=== PATIENT | male | born 1960 | race Caucasian/White ===

== ENCOUNTER 2020-05-11 18:01 | Emergency (ER) | payer OTHER, SELFPAY ==
--- NOTE | ~2020-05-11 | CT_ITS ---
EXAMINATION: CT cervical spine wo con DATE: 05/11/2020 19:12 INDICATION: Fall with head injury and neck pain TECHNIQUE: Computed tomography (CT) of the cervical spine was performed without intravenous contrast. Automated exposure control and iterative reconstruction technique were employed. The dose-length pro duct was 477.22 mGy-cm. COMPARISON: Cervical spine radiographs dated 07/28/2008 FINDINGS: Change mild cervical dextrocurvature. Sagittal alignment is normal. Vertebral body heights are normal . No fracture. Mild disc height loss at C6-C7. Moderate facet osteoarthritis on the right at C3-C4 an d C7-T1 and on the left at C2-C3 and C3-C4. Additional multilevel mild facet and uncovertebral osteoa rthritis throughout the cervical spine. No significant central canal or neural foraminal stenosis. Ce rvical soft tissues are unremarkable. Cluster when apices of lungs are clear. IMPRESSION: 1. Mild cervical spondylosis. No acute osseous abnormality. Reviewed, dictated and finalized at location A. [employer]
--- NOTE | ~2020-05-11 | CT_ITS ---
EXAMINATION: CT brain wo con, CT facial bones wo con DATE: 05/11/2020 19:11 INDICATION: Head injury post fall with neck pain TECHNIQUE: 1. Computed tomography (CT) of the head was performed without intravenous contrast. Sagittal and lucina nal reconstructions were performed. The mA was adjusted according to patient size. Iterative reconstr uction technique was employed. The dose-length product was 605.33 mGy-cm. 2. CT of the maxillofacial bones was performed without intravenous contrast. Sagittal and coronal rec onstructions were performed. Automated exposure control and iterative reconstruction technique were e mployed. The dose-length product was 322.72 mGy-cm. COMPARISON: None FINDINGS: Head: Anterior right frontal scalp hematoma with deep skin laceration. No calvarial fracture. No acute intr acranial hemorrhage, acute infarction or abnormal extra axial fluid collection. Ventricles are normal and symmetric. No mass/mass effect. Maxillofacial bones: No maxillofacial fractures. Orbits are normal. Mucous retention cyst in the right maxillary sinus. Bi lateral mastoid air cells and middle ear cavities are clear. Large dental caries with periapical luce ncy at the anteriormost left maxillary molar. IMPRESSION: 1. No calvarial or maxillofacial fractures. 2. Normal aging brain. Reviewed, dictated and finalized at location A. MANAGER IMPRESSION: 1. No calvarial or maxillofacial fractures. 2. Normal aging brain.
[2020-05-11 18:17] VITALS: BP 168/113; PULSE 72; RESP 12; TEMP 36.4; O2SAT 94
--- NOTE | 2020-05-11 18:41 | ED.FALL ---
HPI - Fall General Chief Complaint: Fall Stated Complaint: ground level fall, head injury, positive LOC Time Seen by Provider: 05/11/20 18:25 Source: patient Mode of arrival: ambulatory Limitations: no limitations History of Present Illness HPI Narrative: 60-year-old male presents to the emergency department tonight after a slip and fall. Patient states he was heading home from work when he slipped on the ice at his home. Patient notes that he fell striking his head on a concrete step. Patient initially was dazed but was able to make it into the home. There his states that he went unresponsive for just a few moments. He was still breathing but it was unclear if he had lost consciousness or not. Patient was feeling quite poor but notes that since he has been here he is feeling better and has noted increased mental clarity. Related Data Allergies Allergy/AdvReac Type Severity Reaction Status Date / Time atorvastatin Allergy Unknown Unknown Verified 05/11/20 18:24 escitalopram Allergy Unknown Not right Verified 05/11/20 18:24 prednisone Allergy Unknown agitation/ Verified 05/11/20 18:24 irritability/ insomnia/ fluctuating blood sugars. rosuvastatin Allergy Unknown myalgias, Verified 05/11/20 18:24 calf cramping No Known Allergies Allergy Unverified 02/05/17 08:07 Review of Systems Review of Systems: Narrative: CONSTITUTIONAL: Denies fever, chills, or sweats. EYES: Denies visual changes, redness, or discharge. ENT: Denies rhinorrhea, congestion, sore throat, or otalgia. CARDIOVASCULAR: Denies chest pain, palpitations, or edema. RESPIRATORY: Denies cough or dyspnea. GASTROINTESTINAL: Denies abdominal pain, nausea, vomiting, or diarrhea. GENITOURINARY: Denies dysuria or hematuria. SKIN: Denies rash or itching. MUSCULOSKELETAL: Denies back pain, joint pain, or myalgia. NEUROLOGIC: Denies headache, numbness, dizziness, or weakness. PSYCHIATRIC: Denies anxiety or depression. [facility] Family History Family History Other Carcinoma of colon Diabetes mellitus Family history of Parkinson's disease Malignant neoplasm of prostate Social History Social History Smoking status: Never smoker Alcohol intake: current Exam Narrative: Exam Narrative: GENERAL: Well-appearing, well-nourished, and in no acute distress. HEAD: Stellate laceration noted on the right forehead, approximately 3 cm in length. EYES: PERRLA and EOMI. ENT: Nares clear, no rhinorrhea or epistaxis. Mucous membranes moist. Abrasion noted on the bridge of the nose NECK: Supple. No adenopathy or masses. No carotid bruits or JVD CHEST: Clear to auscultation. No respiratory distress. No wheezes rales or rhonchi HEART: Regular rate and rhythm. No murmur heard. Normal peripheral pulses. ABDOMEN: Soft, nontender, nondistended, normal active bowel sounds. EXTREMITIES: Normal range of motion. No edema. Abrasion noted on the lateral right knee SKIN: Warm, dry, no rash. NEURO: No focal deficits. Alert and oriented x3. PSYCH: Normal mood and affect. Course Reevaluation(s) Reevaluation #1: Patient resting comfortably at this time. Informed him of his negative CT findings. We will go ahead and repair the laceration with suture. Patient is clear thinking, denies any dizziness, fuzziness in his head or changes in his vision. Low suspicion for concussion at this time. Time: 20:37 Vital Signs Vital signs: Vital Signs Temperature 36.4 C L 05/11/20 18:17 Pulse Rate 72 05/11/20 18:17 Respiratory Rate 12 05/11/20 18:17 Blood Pressure 168/113 H 05/11/20 18:17 Pulse Oximetry 94 05/11/20 18:17 Temperature 36.4 C L 05/11/20 18:17 Pulse Rate 72 05/11/20 18:17 Respiratory Rate 12 05/11/20 18:17 Blood Pressure 168/113 H 05/11/20 18:17 Pulse Oximetry 94 05/11/20 18:17 Procedures Laceration Lace
[2020-05-11] MEDS: TETANUS,DIPHTHERIA,AC PERTUSSIS ADULT (0.5 ML) BOOSTRIX IM (18:51)
[2020-05-11] MEDS: HYDROcodone/acetaminophen (*CRX) 5-325 MG TABLET 1 TAB PO (18:52)
[2020-05-11 20:51] VITALS: BP 134/86; PULSE 68; RESP 16; TEMP 36.4; O2SAT 98
== END 2020-05-11 20:52 | disposition home or self-care (01) ==
PROVIDERS: Emergency Provider Emergency Medicine; PCP Internal Medicine
DX: S01.81XA Laceration without foreign body of other part of head, initial encounter (principal); S80.211A Abrasion, right knee, initial encounter; M47.812 Spondylosis without myelopathy or radiculopathy, cervical region; W00.0XXA Fall on same level due to ice and snow, initial encounter; Z23 Encounter for immunization
CPT/HCPCS: 12013; 70450; 70486; 72125; 90471; 90715; 99284; A9270

== ENCOUNTER 2024-11-11 10:24 | Outpatient (CLI) | payer MEDICARE, SELFPAY ==
--- NOTE | ~2024-11-11 | MR_ITS ---
MRI of the abdomen: Clinical indication: Left renal mass. Technique: Coronal SSFSE ARC, WATER:coronal LAVA-FLEX, Coronal 2D FIESTA FatSat, Axial SSFSE BH ARC, Axial 3D DualEcho BH, Axial SSFSE-IR, Axial DWI b=500, Axial 2D FIESTA FatSat, pre and dynamic postco ntrast Axial LAVA ARC, postcontrast Coronal In and Opposed phase LAVA FLEX. Following intravenous adm inistration of 20 cc MultiHance gadolinium, T1-weighted fat-sat imaging was performed in the axial an d coronal planes. Findings: Gallbladder absent. The common bile duct is normal in course and caliber. No filling defect s are seen within the CBD. No evidence of intrahepatic biliary ductal dilatation. The pancreatic duct is normal in size. There is a 2.8 cm heterogeneously enhancing, partially exophytic mass at the medial aspect of the lef t kidney (series 13 image 223). Liver, spleen, pancreas, adrenals, and right kidney appear normal. The aorta and the paraaortic regio ns appear normal. Impression: 2.8 cm heterogeneously enhancing left renal mass is most compatible with renal cell carcinoma, as det sarthak above. surgical consultation recommended. Reviewed, dictated and finalized at location M. Impression: 2.8 cm heterogeneously enhancing left renal mass is most compatible with renal cell carcinoma, as detailed above. surgical consultation recommended.
--- OUTSIDE RECORDS SUMMARY | 2024-11-11 10:31 | XMS_ITS | Clinical Summary ---
Author Organization [facility] Address [address] [place] [address] Care Team Providers Care Papier Mache' Molder Name Role Phone Maximiliano Collado MD Primary Care Provider + Allergies No known active allergies Medications buPROPion XL (WELLBUTRIN XL) 300 mg 24 hr tabletIndication s:Anxiety with Depression Take 1 tablet (300 mg total) by mouth every morning Active irbesartan (AVAPRO) 300 mg tabletIndication s:hypertension Take 1 tablet (300 mg total) by mouth daily Active lamoTRIgine (LaMICtal) 25 mg tabletIndication s:depression Take 4 tablets (100 mg total) by mouth daily Active nebivoloL (BYSTOLIC) 10 mg tablet Take 1 tablet (10 mg total) by mouth daily Active topiramate (TOPAMAX) 25 mg tablet Take 2 tablets (50 mg total) by mouth 2 (two) times a day Active dapagliflozin propanediol (FARXIGA) 10 mg tablet Take 1 tablet (10 mg total) by mouth daily Active rosuvastatin (CRESTOR) 40 mg tablet Take 1 tablet (40 mg total) by mouth daily Active tamsulosin (FLOMAX) 0.4 mg extended release capsule Take 1 capsule (0.4 mg total) by mouth daily Active DULoxetine DR (CYMBALTA) 60 mg capsule Take 2 capsules (120 mg total) by mouth daily Active ezetimibe (ZETIA) 10 mg tablet Take 1 tablet (10 mg total) by mouth daily Active metFORMIN (GLUCOPHAGE) 500 mg tablet Take 1 tablet (500 mg total) by mouth 2 (two) times a day with meals Active busPIRone (BUSPAR) 15 mg tabletIndication s:Generalized Anxiety Disorder Take 1 tablet (15 mg total) by mouth 3 (three) times a day as needed Active Active Problems Problem Noted Date Diagnosed Date Syncope, unspecified syncope type 10/07/2024 Abnormal EEG 12/10/2023 Obstructive sleep apnea (adult) (pediatric) 03/31 Sensorineural hearing loss (SNHL) of both ears 0 12/04/2021 Assessment & Plan (12/04/2021 10:41 AM CDT): Hearing test Continue to work with Psychiatrist and counselor for Depression [facility] Tinnitus 12/04/2021 Assessment & Plan (12/04/2021 10:41 AM CDT): Hearing test Continue to work with Psychiatrist and counselor for Depression [facility] Family history of colon cancer in father 022 Overview (07/02/2021): Added automatically from request for surgery [id number] Encounter for screening colonoscopy 07/02/2021 Overview (07/02/2021): Added automatically from request for surgery [id number] Chronic suprapubic pain 07/20/2018 Enlarged prostate with lower urinary tract sympt oms (LUTS) 07/20/2018 Chronic prostatitis 07/18/2018 Hypovolemia 07/18/2018 Hypotension due to hypovolemia 07/18/2018 Essential hypertension Encounters Date Type Department Care Team Description 10/20/2024 10:00 AM CDT - 10/20/2024 11:59 PM CDT Hospital Encounter [facility] [address] [place] [address] Obstructive sleep apnea (adult) (pediatric) Discharge Disposition: Discharge to home or self care 10/18/2024 1:50 PM CDT - 10/18/2024 11:59 PM CDT Hospital Encounter [facility] [address] [place] [address] Syncope, unspecified syncope type Discharge Disposition: Discharge to home or self care 10/13/2024 [facility] Post Discharge Follow up phone call [facility] [address] [place] [address] Laurita Norman 10/11/2024 Orders Only [facility] [address] [place] [address] Meryl Brasher RN Syncope, unspecified syncope type (Primary Dx) 10/07/2024 4:52 PM CDT - 10/10/2024 6:25 PM CDT Hospital Encounter [facility] [address] [place] [address] Hipolito Galvez MD Quaizar, Huzaifa, MD Syncope, unspecified syncope type (Primary Dx); Renal mass Discharge Disposition: Discharge to home or self care from Last 3 Months Surgical History Surgery Date Site/Laterality Comments CHOLECYSTECTOMY HERNIA REPAIR COLONOSCOPY 12/28/2016 - 01/27/2017 At [facility]. STOMACH SURGERY 03/30/1997 - 03/29/1998 Surgery for GERD Medical History Medical History Date Comments Hypertension Diabetes mellitus (HCC) Tinnitus Hyperlipidemia GERD (gastroesophageal reflux disease) Prostatitis Type 2 diabetes mellitus Depression Family History Medical History Relation Name Comments Colon cancer Father Relation Name Status Comments Father Social History Tobacco Use Types Packs/Day Years Used Date Smoking Tobacco: Never Smokeless Tobacco: Never Alcohol Use Standard Drinks/Week Comments Never 0 (1 standard drink = 0.6 oz pur e alcohol) [facility] Utilities Answer Date Recorded In the past 12 months has e [employer], gas, oil, or water [employer] threatened to shut off services in your home? No 10/10/2024 Social Connection and Isolation Panel Answer Date Recorded In a typical week, how many times do you talk on the phone with family, friends, or neighbors? More than three times a week 10/10/2024 How often do you get togethe r with friends or relatives? More than three times a week 10/10/2024 How often do you attend chur ch or samaritan services? Never 10/10/2024 Do you belong to any clubs o r organizations such as sabianism groups, unions, fraternal or athletic groups, or school groups? No 10/10/2024 How often do you attend meet ings of the clubs or organizations you belong to? Never 10/10/2024 Are you , , di vorced, , never , or living with a partner? 10/10/2024 AUDIT-C Answer Date Recorded Frequency of Alcohol Consumption Never 07/18/2018 Average Number of Drinks Not on file 019 Frequency of Binge Drinking Not on file 06/29 Overall Financial Resource Strain (CARDIA) Answe r Date Recorded How hard is it for you to pa y for the very basics like food, housing, medical care, and heating? Not very hard 10/10/2024 PHQ-2 Answer Date Recorded PHQ-2 Score 0 11/19/2018 Hunger Vital Sign Answer Date Recorded Within the past 12 months, y ou worried that your food would run out before you got the money to buy more. Never true 10/11/19 25 Within the past 12 months, t he food you bought just didn't last and you didn't have money to get more. Never true 10/10/2024 PRAPARE - Transportation Answer Date Re corded In the past 12 months, has l ack of transportation kept you from medical appointments or from getting medications? No 09/27 In the past 12 months, has l ack of transportation kept you from meetings, work, or from getting things needed for daily living? No 10/10/2024 Housing Stability Vital Sign Answer Joel e Recorded In the last 12 months, was t here a time when you were not able to pay the mortgage or rent on time? No 10/10/2024 In the past 12 months, how m any times have you moved where you were living? 0 10/10/2024 At any time in the past 12 m [facility], were you homeless or living in a usp (including now)? No 10/10/2024 Personal Safety Answer Date Recorded Have you ever been in or are you currently in a harmful physical or emotional relationship or is someone making you feel afraid or unsafe? 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 Gender Identity Not on file Sexual Orientation Not on file Obstetrics History Last Filed Vital Signs Vital Sign Reading Time Taken Comments Blood Pressure 128/91 10/10/2024 3:00 PM CDT Pulse 69 10/10/2024 3:00 PM CDT Temperature 36.6 C (97.8 F) 10/10/2024 3:00 PM CDT Respiratory Rate 18 10/10/2024 3:00 PM CDT Oxygen Saturation 97% 10/10/2024 3:00 PM CDT Inhaled Oxygen Concentration - - Weight 120.6 kg (265 lb 14 oz) 10/07/2024 9:50 P M CDT Height 177.8 cm (5' 10) 10/07/2024 9:50 PM CDT Body Mass Index 38.15 10/07/2024 9:50 PM CDT Plan of Treatment Health Maintenance Due Date Last Done Comments Hepatitis C Screening 1960 Prostate Cancer Screening-PSA 1960 Hepatitis B Screening 1978 Regular Well Visit/Exam 18-64 1978 Zoster Vaccine (1 of 2) 2010 Depression Screening 07/19/2019 07/18/2018 Covid-19 Vaccine (3 - season) 2023 03/03/2021, 06/03/2020 Influenza Vaccine (#1) 2024 03/02/2019 DTaP/Tdap/Td Vaccine (2 - Td or Tdap) 05/11/2030 05/11/2020 Colon Cancer Screening-Colonoscopy 08/07/2031 08/06/2021 Colon Cancer Screening-CT Colonography Discontinued 08/06/2021 Colon Cancer Screening-DNA Stool Discontinued 08/06/2021 Colon Cancer Screening-FIT Discontinued 08/06/2021 Colon Cancer Screening-Sigmoidoscopy Discontinued 08/06/2021 Pneumococcal vaccine <65 Aged Out No longer eligible based on patient's age to complete this topic Procedures Procedure Name Priority Date/Time Associated Diagnosis Comments PORTABLE/HOME SLEEP STUDY Routine 10/21/2024 1:49 PM CDT Obstructive sleep apnea (adult) (pediatric) EEG Routine 10/10/2024 5:41 PM CDT MRI BRAIN WO CONTRAST IP Routine 10/10/2024 2:20 PM CDT US KIDNEY COMPLETE IP Routine 10/10/2024 1: 58 PM CDT EGFR Routine 10/10/2024 2:31 AM CDT DIFFERENTIAL AUTO Routine 10/10/2024 2:3 1 AM CDT CBC WITH AUTO DIFFERENTIAL Routine 10/10/2024 2:31 AM CDT COMPREHENSIVE METABOLIC PANEL Routine 10/10/2024 2:31 AM CDT EGFR Routine 10/09/2024 2:12 AM CDT DIFFERENTIAL AUTO Routine 10/09/2024 2:1 2 AM CDT CBC WITH AUTO DIFFERENTIAL Routine 10/09/2024 2:12 AM CDT COMPREHENSIVE METABOLIC PANEL Routine 10/09/2024 2:12 AM CDT LACTATE Routine 10/08/2024 11:38 AM CDT TRANSTHORACIC ECHO (TTE) COMPLETE W DOPPLER/CF WO CONTRAST STAT 10/08/2024 9:08 AM CDT EGFR Routine 10/08/2024 2:21 AM CDT DIFFERENTIAL AUTO Routine 10/08/2024 2:2 1 AM CDT MAGNESIUM Routine 10/08/2024 2:21 AM CDT COMPREHENSIVE METABOLIC PANEL Routine 10/08/2024 2:21 AM CDT CBC WITH AUTO DIFFERENTIAL Routine 10/08/2024 2:21 AM CDT PROLACTIN Routine 10/08/2024 2:[address] ABDOMEN PELVIS W CONTRAST ED 10/07/2024 6:19 PM CDT D-DIMER, QUANTITATIVE STAT 10/07/2024 5:26 PM CDT TROPONIN T HIGH-SENSITIVITY 4-HR Timed 10/07/2024 5:26 PM CDT POCT GLUCOSE DEVICE Routine 10/07/2024 4 :[address] HEAD WO CONTRAST ED 10/07/2024 2 :26 PM CDT TROPONIN T HIGH-SENSITIVITY SERIES (BASELINE, 2HR, 4HR, 6HR) STAT 10/07/2024 1:40 PM CDT EGFR STAT 10/07/2024 1:30 PM CDT DIFFERENTIAL AUTO STAT 10/07/2024 1:3 0 PM CDT COMPREHENSIVE METABOLIC PANEL STAT 10/07/2024 1:30 PM CDT CBC WITH AUTO DIFFERENTIAL STAT 10/07/2024 1:30 PM CDT ECG 12-LEAD STAT 10/07/2024 1:29 PM CDT POCT GLUCOSE DEVICE Routine 10/07/2024 1 :27 PM CDT COLONOSCOPY 08/06/2021 12:22 PM CDT from Last 3 Months or Most Recently Relevant to Health Maintenance Results * Portable/Home Sleep Study (10/21/2024 1:49 PM CDT) Rony Freeman Rai, MD - 10/21/2024 1:49 PM CDT Indication for study: Mr. Razo is a 64-year-old gentleman chief complaints of snoring, unrefreshing sleep daytime fatigue and sleepiness. The patient's [place] Sleepiness scale score is 13 Vital statistics: Age: 64 years BMI: 41.6 Procedure: Unless otherwise noted, respiratory events were scored in accordance with recommended parameters outlined in the AASM Manual for the Scoring of Sleep and Associated Events, Version 2.6 Hypopneas were scored in accordance with acceptable parameters as outline in Chapter IX, Part 1: HSAT utilizing Respiratory Flow and or Effort Parameters, Category H., Section 1b. This study was performed using a [employer] apnea Link portable monitoring unit, a type 3 portable monitoring device. Variable monitored included nasal/oral pressure transduced airflow( PTAF), single respiratory effort (thoracic belt), snoring (derived from PTAF sensor) and pulse oximetry. Description of polysomnography findings: Patient had 9 hours and 58 minutes of monitored time. 9 hours and 46 minutes flow evaluation was present. 9 hours and 48 minutes oxygen saturation analysis was present. The apnea-hypopnea index was 7.4. There were 19 obstructive apneas and 53 hypopneas recorded. Baseline oxygen saturation was 96%. Lowest oxygen saturation was 85%. Average oxygen saturation was 94%. The oxygen desaturation index was 7.0. Pulse evaluation revealed a maximum 70 beats per minute, minimum 42 beats per minute and averaging 51 beats per minute Impression: 1. Mild obstructive sleep apnea syndrome 2. Consider Positive Airway Pressure (PAP) devices such as continuous PAP (CPAP), auto-adjusting PAP (APAP), and bi-level PAP (Bi-PAP). 3. Alternative therapeutic options include mandibular advanced device and upper airway surgery. 4.Sleep hygiene should be reviewed to assess factors that may improve sleep quality. 5.Weight management and regular exercise should be initiated or continued 6.Avoid alcohol sedatives and other [employer] depression that may worsen sleep apnea and disrupt normal sleep architecture 7. Patients with sleep apnea may have significant daytime hypersomnolence. If that is the case, driving or handling heavy machinery should be avoided until the apnea and excessive sleepiness have resolved. Limitations of the study: 1. A sleep EEG was not recorded; therefore, the actual amount of time spent in sleep, stages of sleep and respiratory events associated with arousals cannot be determined by this study. 2. All indexes are computed against monitoring time, not total sleep time. For this reason, the degree of severity may be underestimated 3. The severity of the sleep apnea may vary from night to night depending on body position during sleep, REM sleep and sleep efficiency. These factors should be taken into consideration. Narrative Rony Hernandez MD - 10/21/2024 1:49 PM CDT OCST for review us [facility] ORDERABLES Final Result * EEG (10/10/2024 5:41 PM CDT) Anatomical Region Laterality Modality Other Impressions 10/10/2024 5:42 PM CDT History: This is a 64 years old patient being evaluated for seizure disorder. The condition of the patient during tracing was reported to be awake and drowsy. The quality of study is good. The background activity consisted of well regulated posterior dominant alpha activity of moderate amplitude. There was no epileptiform discharge seen in this tracing. EKG showed regular rate and rhythm. Impression: This is a normal EEG during awake and drowsy state. There was no epileptiform discharges seen in this tracing. us Son Cox MD NEUROLOGY ORDERABLES Fi nal Result * MRI Brain WO Contrast (10/10/2024 2:20 PM CDT) Anatomical Region Laterality Modality Head and Neck N/A Magnetic Resonan ce 10/10/2024 3:15 PM CDT Narrative 10/10/2024 3:33 PM CDT EXAM DESCRIPTION: MRI BRAIN WO CONTRAST REASON FOR STUDY: Mental status change, unknown cause Pt brought to hospital for syncope. He felt dizzy when he got out of his car, walking toward the door. He felt that he was going to pass out. He sat himself down and passed out for about 1 minute. Patient has no memory about the event. The last thing he remembered was that he was getting out of the car. Episode 10/07/24 TECHNIQUE: Multiplanar imaging includes non-contrasted T1, T2, FLAIR, and diffusion with ADC map sequences. Additional sequence(s) sensitive to blood products. Images stored on PACS. COMPARISON: 04/27/2023 FINDINGS: No diffusion restriction to suggest acute/recent infarction. There is a chronic microhemorrhage in the left temporal lobe (series 11, image 23). This finding is not well seen on the prior examination but in retrospect is unchanged from prior exam. There is mild diffuse parenchymal volume loss. No hydrocephalus. The basilar cisterns are maintained. Partially empty configuration to the sella. The occasional subcortical and periventricular white matter T2/FLAIR hyperintense signal in the bilateral cerebral hemispheres is nonspecific but compatible with chronic microvascular ischemic type change in a patient of this age. Similar signal alteration is seen in the cameron. Bilateral globes are symmetric. There is a right maxillary mucous retention cysts. Otherwise the paranasal sinuses are well-aerated. The mastoid air cells are well-aerated. IMPRESSION: No acute infarction. No acute intracranial process. THIS IS AN ELECTRONICALLY VERIFIED FINAL REPORT 10/10/2024 3:33 PM - Electronically signed by Ross Phoenix M.D. MM: MM Report ID: [id number] Reading Location: [id number] Procedure Note Ross Phoenix MD - 10/10/2024 EXAM DESCRIPTION: MRI BRAIN WO CONTRAST REASON FOR STUDY: Mental status change, unknown cause Pt brought to hospital for syncope. He felt dizzy when he got out of hiscar, walking toward the door. He felt that he was going to pass out. He sat himself down and passed out for about 1 minute. Patient has no memoryabout the event. The last thing he remembered was that he was getting out ofthe car. Episode 10/07/24 TECHNIQUE: Multiplanar imaging includes non-contrasted T1, T2, FLAIR, and diffusion with ADC map sequences. Additional sequence(s) sensitive [employer]. Images stored on PACS. COMPARISON: 04/27/2023 FINDINGS: No diffusion restriction to suggest acute/recent infarction. There is a chronic microhemorrhage in the left temporal lobe (series 11,image 23). This finding is not well seen on the prior examination but inretrospect is unchanged from prior exam. There is mild diffuse parenchymal volume loss. No hydrocephalus. Thebasilar cisterns are maintained. Partially empty configuration to the sella. The occasional subcortical and periventricular white matter T2/FLAIR hyperintense signal in the bilateral cerebral hemispheres is nonspecificbut compatible with chronic microvascular ischemic type change in a patient of this age. Similar signal alteration is seen in the cameron. Bilateral globes are symmetric. There is a right maxillary mucousretention cysts. Otherwise the paranasal sinuses are well-aerated. The mastoid air cells are well-aerated. IMPRESSION: No acute infarction. No acute intracranial process. THIS IS AN ELECTRONICALLY VERIFIED FINAL REPORT 10/10/2024 3:33 PM - Electronically signed by Ross Phoenix M.D. MM: MM Report ID: [id number] Reading Location: [id number] Remedios Morrissey MD [facility] MRI PROCEDURES Final Resu lt * US Kidney Complete (10/10/2024 1:58 PM CDT) Anatomical Region Laterality Modality Kidney N/A Ultrasound 10/10/2024 3:33 PM CDT Narrative 10/10/2024 3:37 PM CDT EXAM DESCRIPTION: US KIDNEY COMPLETE REASON FOR STUDY: kidney pain TECHNIQUE: Ultrasound of the kidneys and urinary bladder was performed with grayscale imaging. COMPARISON: CT abdomen and pelvis with contrast 10/07/2024. FINDINGS: RIGHT KIDNEY: The right kidney measures 12.0 cm in length. There is no hydronephrosis. There is normal cortical thickness and echogenicity. LEFT KIDNEY: The left kidney measures 10.7 cm in length. There is no hydronephrosis. Evaluation of the left kidney is limited due to suboptimal acoustic windows. URINARY BLADDER: The urinary bladder is decompressed. The prostate is enlarged. OTHER: No other additional findings. IMPRESSION: 1. The left renal mass demonstrated on the 10/07/2024 CT is not well seen on this examination due to suboptimal acoustic windows. Urology consultation is recommended if not already performed. MRI of the abdomen with and without contrast could be performed if further imaging is clinically indicated. 2. Prostatomegaly. THIS IS AN ELECTRONICALLY VERIFIED FINAL REPORT 10/10/2024 3:37 PM - Electronically signed by Ross Phoenix M.D. MM: MM Report ID: [id number] Reading Location: [id number] Procedure Note Ross Phoenix MD - 10/10/2024 EXAM DESCRIPTION: US KIDNEY COMPLETE REASON FOR STUDY: kidney pain TECHNIQUE: Ultrasound of the kidneys and urinary bladder was performedwith grayscale imaging. COMPARISON: CT abdomen and pelvis with contrast 10/07/2024. FINDINGS: RIGHT KIDNEY: The right kidney measures 12.0 cm in length. There is no hydronephrosis. There is normal cortical thickness and echogenicity. LEFT KIDNEY: The left kidney measures 10.7 cm in length. There is no hydronephrosis. Evaluation of the left kidney is limited due tosuboptimal acoustic windows. URINARY BLADDER: The urinary bladder is decompressed. The prostate is enlarged. OTHER: No other additional findings. IMPRESSION: 1. The left renal mass demonstrated on the 10/07/2024 CT is not wellseen on this examination due to suboptimal acoustic windows. Urology consultationis recommended if not already performed. MRI of the abdomen with and without contrast could be performed if further imaging is clinically indicated. 2. Prostatomegaly. THIS IS AN ELECTRONICALLY VERIFIED FINAL REPORT 10/10/2024 3:37 PM - Electronically signed by Ross Phoenix M.D. MM: MM Report ID: [id number] Reading Location: [place] [address] [place] Remedios Morrissey MD IMG US PROCEDURES Final Resul t * eGFR (10/10/2024 2:31 AM CDT) eGFR 70 >=60 mL/min/1. 73 m2 Comment: Interpretive Data Reference Interval Normal >/= 90 mL/min/1.73m2 Mildly decreased* 60 - 89 mL/min/1.73m2 Mildly to moderately decreased 45 - 59 mL/min/1.73m2 Moderately to severely decreased 30 - 44 mL/min/1.73m2 Severely decreased 15 - 29 mL/min/1.73m2 Kidney Failure < 15 mL/min/1.73m2 *Relative to young adult level Estimated glomerular filtration rate is determined by the 2020 CKD-EPI equation recommended by the National Kidney Foundation (A Unifying Approach to GFR Estimation: Recommendations of the NKF-ASK Task Force on Reassessing the Inclusion of Race in Diagnosing Kidney Disease, JASN 2020). The CKD-EPI equation should not be used for patients with unstable renal function and has not been validated in children and those over 70. Current interpretive data was last reviewed 2021. Blood 10/10/2024 2:31 AM CDT 10/10/2024 3:30 AM CDT us Hipolito Galvez MD LAB BLOOD ORDERABLES nal Result [facility] Department [place] [address] * Differential, auto (10/10/2024 2:31 AM CDT) Neutrophil abs 2.91 1.50 - 6.50 K/cumm Imm gran abs 0.02 0.00 - 0.10 K/cumm [facility] ([place]) Lymphocyte abs 1.30 0.80 - 3.30 K/cumm [facility] Monocyte abs 0.54 0.20 - 0.80 K/cumm [facility] ([place] Eosinophil abs 0.07 0.00 - 0.50 K/cumm [facility] Basophil abs 0.01 0.00 - 0.10 K/cumm [facility] ([place] Neutrophil pct 60.1 % [facility] Comment: Interpretive Data Percent cell count reference ranges are not reported, since discordance with absolute values may lead to misinterpretation of CBC data. Current Interpretive Data was last revised on 2017. Imm gran pct 0.4 % [facility] Comment: Interpretive Data Percent cell count reference ranges are not reported, since discordance with absolute values may lead to misinterpretation of CBC data. Current Interpretive Data was last revised on 2017. Lymphocyte pct 26.8 % [facility] Comment: Interpretive Data Percent cell count reference ranges are not reported, since discordance with absolute values may lead to misinterpretation of CBC data. Current Interpretive Data was last revised on 2017. Monocyte pct 11.1 % [facility] ([place] Comment: Interpretive Data Percent cell count reference ranges are not reported, since discordance with absolute values may lead to misinterpretation of CBC data. Current Interpretive Data was last revised on 2017. Eosinophil pct 1.4 % [facility] Comment: Interpretive Data Percent cell count reference ranges are not reported, since discordance with absolute values may lead to misinterpretation of CBC data. Current Interpretive Data was last revised on 2017. Basophil pct 0.2 % [facility] ([place] Comment: Interpretive Data Percent cell count reference ranges are not reported, since discordance with absolute values may lead to misinterpretation of CBC data. Current Interpretive Data was last revised on 2017. Blood 10/10/2024 2:31 AM CDT 10/10/2024 3:26 AM CDT us Hipolito Galvez MD LAB BLOOD ORDERABLES [facility] Result [facility] ([place] [address] [facility] Department [place] [address] * (ABNORMAL) CBC with auto differential (10/10/2024 2:31 AM CDT) WBC 4.85 3.80 - 9.90 K/cumm Hgb 11.2(L) 13.0 - 17.5 g/dL [facility] Hct 35.4(L) 38.9 - 50.3 % [facility] Plt 205 150 - 400 K/cumm [facility] MPV 9.7 9.1 - 12.3 fL [facility] RBC 3.94(L) 4.30 - 5.80 M/cumm [facility] ([place] MCV 89.8 81.3 - 96.4 fL [facility] MCH 28.4 27.1 - 33.3 pg [facility] MCHC 31.6(L) 32.3 - 35.7 g/dL [facility] RDW CV 12.6 11.1 - 14.9 % [facility] RDW SD 41.4 35.7 - 48.1 fL [facility] [facility] NRBC abs 0.00 0.00 - 0.01 K/cumm [facility] Blood 10/10/2024 2:31 AM CDT 10/10/2024 3:26 AM CDT us Hipolito Galvez MD LAB BLOOD ORDERABLES nal Result [facility] 1 [facility] Department [place] [address] * (ABNORMAL) Comprehensive metabolic panel (10/10/2024 2:31 AM CDT) Sodium 140 135 - 145 mmol/L Potassium, pl 4.0 3.3 - 4.9 mmol/L [facility] Chloride 105 97 - 110 mmol/L [facility] ([place]) CO2 23 22 - 32 mmol/L [facility] ([place]) Anion gap 12 2 - 15 mmol/L [facility] ([place]) BUN 15 6 - 25 mg/dL [facility] Creatinine 1.17 0.80 - 1.30 mg/dL [facility] ([place]) Glucose 84 70 - 199 mg/dL [facility] Comment: Interpretive Data Fasting glucose >/= 126 mg/dl is diagnostic for diabetes. Fasting is defined as no caloric intake for at least 8 hours. Fasting glucose between 100 mg/dl to 125 mg/dl is diagnostic of prediabetes. In a patient with classic symptoms of hyperglycemia or hyperglycemic crisis, a random glucose >/= 200 mg/dl is diagnostic for diabetes. In the absence of unequivocal hyperglycemia, results should be confirmed by repeat testing. The classification and Diagnosis of Diabetes Diabetes Care 2021; 46: S19-S40. Current interpretive data was last revised 2022. Calcium 8.9 8.5 - 10.3 mg/dL [facility] ([place]) Bilirubin, total 0.3 0.1 - 1.2 mg/dL [facility] Protein, pl 5.6(L) 6.5 - 8.5 g/dL [facility] ([place]) Albumin 3.5 3.5 - 5.0 g/dL [facility] ([facility]) Alk phos 92 40 - 130 Units/L [facility] ([place] ALT 22 7 - 55 Units/L [facility] ([place]) AST 25 10 - 50 Units/L [facility] ([place]) Comment:Slightly Hemolyzed S pecimen Blood 10/10/2024 2:31 AM CDT 10/10/2024 3:30 AM CDT us Hipolito Galvez MD LAB BLOOD ORDERABLES Fi nal Result [facility] ([place]) 1 [facility] Department [place] [address] * eGFR (10/09/2024 2:12 AM CDT) eGFR 71 >=60 mL/min/1. 73 m2 Comment: Interpretive Data Reference Interval Normal >/= 90 mL/min/1.73m2 Mildly decreased* 60 - 89 mL/min/1.73m2 Mildly to moderately decreased 45 - 59 mL/min/1.73m2 Moderately to severely decreased 30 - 44 mL/min/1.73m2 Severely decreased 15 - 29 mL/min/1.73m2 Kidney Failure < 15 mL/min/1.73m2 *Relative to young adult level Estimated glomerular filtration rate is determined by the 2020 CKD-EPI equation recommended by the National Kidney Foundation (A Unifying Approach to GFR Estimation: Recommendations of the NKF-ASK Task Force on Reassessing the Inclusion of Race in Diagnosing Kidney Disease, JASN 202). The CKD-EPI equation should not be used for patients with unstable renal function and has not been validated in children and those over 70. Current interpretive data was last reviewed 2021. Blood 10/09/2024 2:12 AM CDT 10/09/2024 3:28 AM CDT us Hipolito Galvez MD LAB BLOOD ORDERABLES Fi nal Result [facility] ([place]) 1 [facility] Department [place] [address] * Differential, auto (10/09/2024 2:12 AM CDT) Neutrophil abs 2.56 1.50 - 6.50 K/cumm Imm gran abs 0.02 0.00 - 0.10 K/cumm [facility] ([place]) Lymphocyte abs 1.23 0.80 - 3.30 K/cumm [facility] ([place]) Monocyte abs 0.47 0.20 - 0.80 K/cumm [facility] ([place]) Eosinophil abs 0.08 0.00 - 0.50 K/cumm [facility] ([place]) Basophil abs 0.01 0.00 - 0.10 K/cumm [facility] ([place]) Neutrophil pct 58.6 % [facility] ([place]) Comment: Interpretive Data Percent cell count reference ranges are not reported, since discordance with absolute values may lead to misinterpretation of CBC data. Current Interpretive Data was last revised on 2017. Imm gran pct 0.5 % [facility] ([place]) Comment: Interpretive Data Percent cell count reference ranges are not reported, since discordance with absolute values may lead to misinterpretation of CBC data. Current Interpretive Data was last revised on 2017. Lymphocyte pct 28.1 % [facility] ([facility]) Comment: Interpretive Data Percent cell count reference ranges are not reported, since discordance with absolute values may lead to misinterpretation of CBC data. Current Interpretive Data was last revised on 2017. Monocyte pct 10.8 % [facility] ([place]) Comment: Interpretive Data Percent cell count reference ranges are not reported, since discordance with absolute values may lead to misinterpretation of CBC data. Current Interpretive Data was last revised on 2017. Eosinophil pct 1.8 % [facility] ([place]) Comment: Interpretive Data Percent cell count reference ranges are not reported, since discordance with absolute values may lead to misinterpretation of CBC data. Current Interpretive Data was last revised on 2017. Basophil pct 0.2 % [facility] ([place]) Comment: Interpretive Data Percent cell count reference ranges are not reported, since discordance with absolute values may lead to misinterpretation of CBC data. Current Interpretive Data was last revised on 2017. Blood 10/09/2024 2:12 AM CDT 10/09/2024 3:28 AM CDT Hipolito Galvez MD LAB BLOOD ORDERABLES Fi nal Result Performing Organization Address City/[facility] Co de Phone Number [facility] ([place]) 1 [facility] Department [place] [address] * (ABNORMAL) CBC with auto differential (10/09/2024 2:12 AM CDT) WBC 4.37 3.80 - 9.90 K/cumm Hgb 11.5(L) 13.0 - 17.5 g/dL [facility] ([place]) Hct 35.5(L) 38.9 - 50.3 % [facility] ([place]) Plt 208 150 - 400 K/cumm [facility] ([place]) MPV 9.7 9.1 - 12.3 fL [facility] ([place]) RBC 3.95(L) 4.30 - 5.80 M/cumm [facility] ([place]) MCV 89.9 81.3 - 96.4 fL [facility] ([place]) MCH 29.1 27.1 - 33.3 pg [facility] ([place]) MCHC 32.4 32.3 - 35.7 g/dL [facility] ([place]) RDW CV 12.7 11.1 - 14.9 % [facility] ([place]) RDW SD 42.4 35.7 - 48.1 fL [facility] ([place]) NRBC abs 0.00 0.00 - 0.01 K/cumm [facility] ([place]) Blood 10/09/2024 2:12 AM CDT 10/09/2024 3:28 AM CDT Hipolito Galvez MD LAB BLOOD ORDERABLES Fi nal Result [facility] ([place]) 1 [facility] Department [place] [address] * (ABNORMAL) Comprehensive metabolic panel (10/09/2024 2:12 AM CDT) Sodium 137 135 - 145 mmol/L Potassium, pl 4.2 3.3 - 4.9 mmol/L [facility] ([place]) Chloride 105 97 - 110 mmol/L [facility] ([place]) CO2 23 22 - 32 mmol/L [facility] ([place]) Anion gap 10 2 - 15 mmol/L [facility] ([place]) BUN 14 6 - 25 mg/dL [facility] ([place]) Creatinine 1.15 0.80 - 1.30 mg/dL [facility] ([place]) Glucose 90 70 - 199 mg/dL [facility] ([place]) Comment: Interpretive Data Fasting glucose >/= 126 mg/dl is diagnostic for diabetes. Fasting is defined as no caloric intake for at least 8 hours. Fasting glucose between 100 mg/dl to 125 mg/dl is diagnostic of prediabetes. In a patient with classic symptoms of hyperglycemia or hyperglycemic crisis, a random glucose >/= 200 mg/dl is diagnostic for diabetes. In the absence of unequivocal hyperglycemia, results should be confirmed by repeat testing. The classification and Diagnosis of Diabetes Diabetes Care 2021; 46: S19-S40. Current interpretive data was last revised 2022. Calcium 8.9 8.5 - 10.3 mg/dL [facility] ([place]) Bilirubin, total 0.3 0.1 - 1.2 mg/dL [facility] ([place]) Protein, pl 5.5(L) 6.5 - 8.5 g/dL [facility] ([place]) Albumin 3.4(L) 3.5 - 5.0 g/dL [facility] ([place]) Alk phos 92 40 - 130 Units/L [facility] ([place]) ALT 17 7 - 55 Units/L [facility] ([place]) AST 17 10 - 50 Units/L [facility] ([place]) Blood 10/09/2024 2:12 AM CDT 10/09/2024 3:28 AM CDT us Hipolito Galvez MD LAB BLOOD ORDERABLES Fi nal Result Performing Organization Address City/[facility]/ZIP Co de Phone Number [facility] ([place]) [address] [place] [phone] * Lactate (10/08/2024 11:38 AM CDT) Pathologist [facility] Lactate 1.0 0.7 - 2.0 mmol/L Blood 10/08/2024 11:3 8 AM CDT 10/08/2024 11:40 AM CDT Remedios Morrissey MD LAB BLOOD ORDERABLES Final Re sult Performing Organization Address [facility] Co de Phone Number RUBIN JimenezBURLINGTON) [address] [place] [phone] * TRANSTHORACIC ECHO (TTE) COMPLETE W DOPPLER/CF WO CONTRAST (10/08/2024 9:08 AM CDT) Pathologist [facility] Estimated EF 60 % CONS SCIMAGE Anatomical Region Laterality Modality Ultrasound 10/08/2024 8:52 AM CDT Narrative 10/08/2024 10:58 AM CDT [address] [address] Echocardiogram Report Patient Name: LISA RAZO : 1960 Study Date: 10/08/2024 8:52:41 AM Gender: M Tech: [employer] Location: [id number] Ref Provider: BENNETT LYN Height(Cm): 178 BSA: 2.43 Weight(Kg): 119.3 Quality: Adequate Order Provider: BENNETT LYN PROCEDURES: Echocardiographic Report: Transthoracic echocardiogram with complete 2D, M-Mode, and color Doppler examination. INDICATIONS: Syncope. MEASUREMENTS: 2D/MM Value Range Doppler Value Range EF Teich MM 63.7 % [ 52.0 - 72.0 ] HILDA Vmax 3.41 cm2 Estimated EF 60 to 65 % AV Mean PG 5 mmHg LVIDd MM 5.20 cm [ 4.20 - 5.80 ] AV Peak Alberto 1.63 m/s [ 1.00 - 1.70 ] LVIDs MM 3.39 cm [ 2.50 - 4.00 ] AV VTI 37.94 cm LVPWd MM 1.20 cm [ 0.60 - 1.00 ] LVOT Diam 2.32 cm IVSd MM 1.03 cm [ 0.60 - 1.00 ] LVOT Peak Alberto 1.32 m/s [ 0.70 - 1.10 ] LVOT VTI 28.53 cm MV E Peak Alberto 1.03 m/s [ 0.60 - 1.30 ] MV A Peak Alberto 1.04 m/s [ 1.00 - 1.20 ] MV Mean PG 3 mmHg MV PHT 84 msec [ 20 - 100 ] MVA 2.60 MV Decel Time 233 msec [ 104 - 258 ] PV Peak Alberto 0.97 m/s [ 0.40 - 0.80 ] TR Peak Alberto 2.93 m/s [ 1.00 - 2.80 ] TR Peak PG 34 mmHg RVSP 37.00 mmHg [ 10.00 - 36.00 ] E` 0.07 m/s E/E` 14.31 [ <= 10.00 ] PA Pressure 37.00 mmHg [ 10.00 - 36.00 ] 2D/MM Value Range Doppler Value Range - FINDINGS: Atrial Septum: Normal atrial septum. Left Ventricle: Normal global left ventricular systolic function. Ejection Fraction is estimated to be 60 to 65 %. Left Atrium: The left atrium is normal in size. Right Ventricle: Normal right ventricular size. Normal right ventricular systolic function. Right Atrium: The right atrium is normal in size. Aortic Valve: Normal structure of the aortic valve. Mitral Valve: Normal structure of the mitral valve. Trivial regurgitation of the mitral valve. Pulmonic Valve: Pulmonic valve not well visualized. Tricuspid Valve: Normal structure of the tricuspid valve. Mild pulmonary hypertension based on right ventricular systolic pressure. Estimated peak RVSP is 44 to 48 mmHg. Trivial regurgitation in the tricuspid valve. Pericardium: Normal pericardium with no significant pericardial effusion. Aorta: Normal aortic root. IVC: Normal size and normal respiratory collapse consistent with normal right atrial pressure (<5 mmHg). CONCLUSIONS: Normal global left ventricular systolic function. Ejection Fraction is estimated to be 60 to 65 %. Normal structure of the mitral valve. Trivial regurgitation of the mitral valve. Normal structure of the aortic valve. Normal structure of the tricuspid valve. Mild pulmonary hypertension based on right ventricular systolic pressure. Estimated peak RVSP is 44 to 48 mmHg. Trivial regurgitation in the tricuspid valve. Electronically Signed By: Dr Lisa Huang 10/08/2024 10:57:46 AM CDT Procedure Note Lisa Huang MD - 10/08/[address] [address] Echocardiogram Report Patient Name: LISA RAZO : 1960 Study Date: 10/08/2024 8:52:41 AM Gender: M Tech: [employer] Location: [id number] Ref Provider: BENNETT LYN Height(Cm): 178 BSA: 2.43 Weight(Kg): 119.3 Quality: Adequate Order Provider: BENNETT LYN PROCEDURES: Echocardiographic Report: Transthoracic echocardiogram with complete 2D, M-Mode, and color Dopplerexamination. INDICATIONS: Syncope. MEASUREMENTS: 2D/MM Value Range Doppler ValueRange EF Teich MM 63.7 % [ 52.0 - 72.0 ] HILDA Vmax 3.41cm2 Estimated EF 60 to 65 % AV Mean PG 5 mmHg LVIDd MM 5.20 cm [ 4.20 - 5.80 ] AV Peak Alberto 1.63 m/s[ 1.00 - 1.70 ] LVIDs MM 3.39 cm [ 2.50 - 4.00 ] AV VTI 37.94cm LVPWd MM 1.20 cm [ 0.60 - 1.00 ] LVOT Diam 2.32cm IVSd MM 1.03 cm [ 0.60 - 1.00 ] LVOT Peak Alberto 1.32 m/s[ 0.70 - 1.10 ] LVOT VTI 28.53 cm MV E Peak Alberto 1.03 m/s [ 0.60 - 1.30 ] MV A Peak Alberto 1.04 m/s [ 1.00 - 1.20 ] MV Mean PG 3 mmHg MV PHT 84 msec [ 20 - 100 ] MVA 2.60 MV Decel Time 233 msec [ 104 - 258 ] PV Peak Alberto 0.97 m/s [ 0.40 - 0.80 ] TR Peak Alberto 2.93 m/s [ 1.00 - 2.80 ] TR Peak PG 34 mmHg RVSP 37.00 mmHg [ 10.00 - 36.00 ] E` 0.07 m/s E/E` 14.31 [ <= 10.00 ] PA Pressure 37.00 mmHg [ 10.00 - 36.00 ] 2D/MM Value Range Doppler ValueRange - FINDINGS: Atrial Septum: Normal atrial septum. Left Ventricle: Normal global left ventricular systolic function. Ejection Fraction isestimated to be 60 to 65 %. Left Atrium: The left atrium is normal in size. Right Ventricle: Normal right ventricular size. Normal right ventricular systolicfunction. Right Atrium: The right atrium is normal in size. Aortic Valve: Normal structure of the aortic valve. Mitral Valve: Normal structure of the mitral valve. Trivial regurgitation of the mitralvalve. Pulmonic Valve: Pulmonic valve not well visualized. Tricuspid Valve: Normal structure of the tricuspid valve. Mild pulmonary hypertension basedon right ventricular systolic pressure. Estimated peak RVSP is 44 to 48 mmHg.Trivial regurgitation in the tricuspid valve. Pericardium: Normal pericardium with no significant pericardial effusion. Aorta: Normal aortic root. IVC: Normal size and normal respiratory collapse consistent with normal rightatrial pressure (<5 mmHg). CONCLUSIONS: Normal global left ventricular systolic function. Ejection Fraction isestimated to be 60 to 65 %. Normal structure of the mitral valve. Trivial regurgitation of the mitralvalve. Normal structure of the aortic valve. Normal structure of the tricuspid valve. Mild pulmonary hypertension basedon right ventricular systolic pressure. Estimated peak RVSP is 44 to 48 mmHg.Trivial regurgitation in the tricuspid valve. Electronically Signed By: Dr Lisa Huang 10/08/2024 10:57:46 AM CDT us Bennett [facility] CV ECHO PROCEDURES Final Result * eGFR (10/08/2024 2:21 AM CDT) eGFR 68 >=60 mL/min/1. 73 m2 Comment: Interpretive Data Reference Interval Normal >/= 90 mL/min/1.73m2 Mildly decreased* 60 - 89 mL/min/1.73m2 Mildly to moderately decreased 45 - 59 mL/min/1.73m2 Moderately to severely decreased 30 - 44 mL/min/1.73m2 Severely decreased 15 - 29 mL/min/1.73m2 Kidney Failure < 15 mL/min/1.73m2 *Relative to young adult level Estimated glomerular filtration rate is determined by the 2020 CKD-EPI equation recommended by the National Kidney Foundation (A Unifying Approach to GFR Estimation: Recommendations of the NKF-ASK Task Force on Reassessing the Inclusion of Race in Diagnosing Kidney Disease, JASN 202). The CKD-EPI equation should not be used for patients with unstable renal function and has not been validated in children and those over 70. Current interpretive data was last reviewed 2021. Blood 10/08/2024 2:21 AM CDT 10/08/2024 2:38 AM CDT us Bennett BE[facility] LAB BLOOD ORDERABLES Natali hathaway Result [facility] [place] 1 [facility] Department [place] [address] * Differential, auto (10/08/2024 2:21 AM CDT) Neutrophil abs 2.80 1.50 - 6.50 K/cumm Imm gran abs 0.02 0.00 - 0.10 K/cumm [facility] ([place]) Lymphocyte abs 1.51 0.80 - 3.30 K/cumm [facility] ([place]) Monocyte abs 0.50 0.20 - 0.80 K/cumm [facility] ([place]) Eosinophil abs 0.09 0.00 - 0.50 K/cumm [facility] ([place]) Basophil abs 0.02 0.00 - 0.10 K/cumm [facility] ([place]) Neutrophil pct 56.7 % [facility] ([place]) Comment: Interpretive Data Percent cell count reference ranges are not reported, since discordance with absolute values may lead to misinterpretation of CBC data. Current Interpretive Data was last revised on 2017. Imm gran pct 0.4 % [facility] ([place]) Comment: Interpretive Data Percent cell count reference ranges are not reported, since discordance with absolute values may lead to misinterpretation of CBC data. Current Interpretive Data was last revised on 2017. Lymphocyte pct 30.6 % [facility] ([place]) Comment: Interpretive Data Percent cell count reference ranges are not reported, since discordance with absolute values may lead to misinterpretation of CBC data. Current Interpretive Data was last revised on 2017. Monocyte pct 10.1 % [facility] ([place]) Comment: Interpretive Data Percent cell count reference ranges are not reported, since discordance with absolute values may lead to misinterpretation of CBC data. Current Interpretive Data was last revised on 2017. Eosinophil pct 1.8 % [facility] ([place]) Comment: Interpretive Data Percent cell count reference ranges are not reported, since discordance with absolute values may lead to misinterpretation of CBC data. Current Interpretive Data was last revised on 2017. Basophil pct 0.4 % [facility] ([place]) Comment: Interpretive Data Percent cell count reference ranges are not reported, since discordance with absolute values may lead to misinterpretation of CBC data. Current Interpretive Data was last revised on 2017. Blood 10/08/2024 2:21 AM CDT 10/08/2024 2:37 AM CDT Bennett [facility] LAB BLOOD ORDERABLES Natali l Result [facility] ([place]) 1 [facility] [place] [address] * (ABNORMAL) CBC with auto differential (10/08/2024 2:21 AM CDT) WBC 4.94 3.80 - 9.90 K/cumm Hgb 11.8(L) 13.0 - 17.5 g/dL [facility] ([place]) Hct 36.7(L) 38.9 - 50.3 % [facility] ([place]) Plt 214 150 - 400 K/cumm [facility] ([place]) MPV 9.3 9.1 - 12.3 fL [facility] ([place]) RBC 4.13(L) 4.30 - 5.80 M/cumm [facility] ([place]) MCV 88.9 81.3 - 96.4 fL [facility] ([place]) MCH 28.6 27.1 - 33.3 pg [facility] ([place]) MCHC 32.2(L) 32.3 - 35.7 g/dL [facility] ([place]) RDW CV 13.0 11.1 - 14.9 % [facility] ([place]) RDW SD 42.2 35.7 - 48.1 fL [facility] ([place]) NRBC abs 0.00 0.00 - 0.01 K/cumm [facility] ([place]) Blood 10/08/2024 2:21 AM CDT 10/08/2024 2:37 AM CDT Bennett [facility] LAB BLOOD ORDERABLES Natali hathaway Result [facility] ([place]) 1 [facility] [place] [address] * Magnesium (10/08/2024 2:21 AM CDT) Magnesium 2.0 1.4 - 2.5 mg/dL Blood 10/08/2024 2:21 AM CDT 10/08/2024 2:38 AM CDT us Hipolito Galvez MD LAB BLOOD ORDERABLES Fi nal Result [facility] ([place] 1 [facility] Department [place] [address] * (ABNORMAL) Comprehensive metabolic panel (10/08/2024 2:21 AM CDT) Sodium 138 135 - 145 mmol/L Potassium, pl 3.9 3.3 - 4.9 mmol/L [facility] ([place]) Chloride 105 97 - 110 mmol/L [facility] ([place]) CO2 23 22 - 32 mmol/L [facility] ([place]) Anion gap 10 2 - 15 mmol/L [facility] ([place]) BUN 19 6 - 25 mg/dL [facility] Creatinine 1.20 0.80 - 1.30 mg/dL [facility] ([place]) Glucose 96 70 - 199 mg/dL [facility] Comment: Interpretive Data Fasting glucose >/= 126 mg/dl is diagnostic for diabetes. Fasting is defined as no caloric intake for at least 8 hours. Fasting glucose between 100 mg/dl to 125 mg/dl is diagnostic of prediabetes. In a patient with classic symptoms of hyperglycemia or hyperglycemic crisis, a random glucose >/= 200 mg/dl is diagnostic for diabetes. In the absence of unequivocal hyperglycemia, results should be confirmed by repeat testing. The classification and Diagnosis of Diabetes Diabetes Care 2021; 46: S19-S40. Current interpretive data was last revised 2022. Calcium 8.8 8.5 - 10.3 mg/dL [facility] ([place]) Bilirubin, total 0.3 0.1 - 1.2 mg/dL [facility] ([place]) Protein, pl 5.5(L) 6.5 - 8.5 g/dL [facility] ([place]) Albumin 3.5 3.5 - 5.0 g/dL [facility] ([place]) Alk phos 95 40 - 130 Units/L [facility] ([place]) ALT 18 7 - 55 Units/L [facility] ([place]) AST 15 10 - 50 Units/L [facility] ([place]) Blood 10/08/2024 2:21 AM CDT 10/08/2024 2:38 AM CDT us Bennett [facility] LAB BLOOD ORDERABLES Natali l Result Performing Organization Address [facility]/ZIP Co de Phone Number [facility] ([place]) 1 [facility] [place] [employer] [place] [address] * (ABNORMAL) Prolactin (10/08/2024 2:18 AM CDT) Prolactin 17.2(H) 4.0 - 15.2 ng/mL Comment:Testing performed by : [facility], [address] [place] [address], [id number] Blood 10/08/2024 2:18 AM CDT 10/08/2024 1:07 PM CDT us Remedios Morrissey MD LAB BLOOD ORDERABLES Final Re sult Performing Organization Address [facility] Co de Phone Number [facility] ([place]) 1 [facility] [place] [address] * CT Abdomen Pelvis W Contrast (10/07/2024 6:19 PM CDT) Anatomical Region Laterality Modality Body N/A Computed Tomogra phy 10/07/2024 7:15 PM CDT Narrative 10/07/2024 7:46 PM CDT EXAM DESCRIPTION: CT ABDOMEN PELVIS W CONTRAST REASON FOR STUDY: Abdominal pain, acute, nonlocalized Patient ambulatory to triage with complaint of seizure like activity approx 40 minutes prior to arrival. states patient seized up, and went unresponsive for approx 60 seconds. Patient states he had one other episode like this approx 1 year ago and they had to decrease his blood pressure medications. States he has been losing weight. TECHNIQUE: CT scan of the abdomen and pelvis performed with intravenous and without oral contrast using helical scanning technique with dynamic intravenous contrast injection. Reconstructed coronal and sagittal MPR images reviewed. All images stored on PACS. Automated exposure control was used as a dose optimization technique for this examination. CONTRAST TYPE/DOSE: 100mL of IOVERSOL 350 MG IODINE/ML INTRAVENOUS SYRINGE injected COMPARISON: 06/24/2021 FINDINGS: LOWER CHEST: Mild scattered subsegmental atelectasis and mild scattered bilateral pulmonary parenchymal scarring. No pleural effusion. Imaged portions of the heart and esophagus are within limits. LIVER: Normal size. No identified cystic or solid masses. There is subtle hepatic surface nodularity which can be seen with hepatic cirrhosis. The hepatic and portal veins are patent. GALLBLADDER: Prior cholecystectomy. BILE DUCTS: No intrahepatic or extrahepatic ductal dilatation. SPLEEN: Normal size. No focal lesions. PANCREAS: No identified cystic or solid masses. No significant calcifications. No adjacent inflammation or peripancreatic fluid collections. Pancreatic duct not dilated. ADRENALS: Normal. KIDNEYS/URINARY TRACT: There has been interval increase in size of heterogeneously attenuating mass in the medial upper pole of the left kidney measuring approximately 26 mm. Subcentimeter hypoattenuating left renal lesions are too small to characterize. No visualized stones. No hydronephrosis or hydroureter. Symmetric enhancement. Circumferential thickening of the urinary bladder wall which could be due to incomplete distension with or without sequela of chronic bladder outlet obstruction in the setting of an enlarged prostate gland. GI: The stomach is normal. The small bowel and colon are normal in course and caliber with no evidence of obstruction or inflammation. The appendix is normal. PERITONEUM: No ascites or free air. No lymphadenopathy RETROPERITONEUM: No mass or adenopathy. REPRODUCTIVE: There is mild enlargement of the prostate gland with internal calcifications. VASCULATURE: No abdominal aortic aneurysm. The abdominal aorta and its branches are patent. MUSCULOSKELETAL: No acute fractures or aggressive osseous lesions. OTHER: There are small fat containing supraumbilical ventral abdominal wall hernias. IMPRESSION: 1. Interval increase in size of heterogeneously attenuating mass in the medial upper pole of the left kidney measuring approximately 26 mm which could reflect a solid renal neoplasm such as renal cell carcinoma or oncocytoma. Dedicated renal protocol MRI is recommended for further evaluation.. 2. Mild enlargement of the prostate gland. THIS IS AN ELECTRONICALLY VERIFIED FINAL REPORT 10/07/2024 7:46 PM - Electronically signed by Francisco Adrian M.D. AT: AT Report ID: [id number] Reading Location: [id number] Procedure Note Francisco Adrian MD - 10/07/2024 EXAM DESCRIPTION: CT ABDOMEN PELVIS W CONTRAST REASON FOR STUDY: Abdominal pain, acute, nonlocalized Patient ambulatory to triage with complaint of seizure like activityapprox 40 minutes prior to arrival. states patient seized up, and went unresponsive for approx 60 seconds. Patient states he had one otherepisode like this approx 1 year ago and they had to decrease his blood pressure medications. States he has been losing weight. TECHNIQUE: CT scan of the abdomen and pelvis performed with intravenousand without oral contrast using helical scanning technique with dynamic intravenous contrast injection. Reconstructed coronal and sagittal MPRimages reviewed. All images stored on PACS. Automated exposure control was usedas a dose optimization technique for this examination. CONTRAST TYPE/DOSE: 100mL of IOVERSOL 350 MG IODINE/ML INTRAVENOUSSYRINGE injected COMPARISON: 06/24/2021 FINDINGS: LOWER CHEST: Mild scattered subsegmental atelectasis and mild scattered bilateral pulmonary parenchymal scarring. No pleural effusion. Imaged portions of the heart and esophagus are within limits. LIVER: Normal size. No identified cystic or solid masses. There issubtle hepatic surface nodularity which can be seen with hepatic cirrhosis. The hepatic and portal veins are patent. GALLBLADDER: Prior cholecystectomy. BILE DUCTS: No intrahepatic or extrahepatic ductal dilatation. SPLEEN: Normal size. No focal lesions. PANCREAS: No identified cystic or solid masses. No significant calcifications. No adjacent inflammation or peripancreatic fluidcollections. Pancreatic duct not dilated. ADRENALS: Normal. KIDNEYS/URINARY TRACT: There has been interval increase in size of heterogeneously attenuating mass in the medial upper pole of the leftkidney measuring approximately 26 mm. Subcentimeter hypoattenuating left renal lesions are too small to characterize. No visualized stones. No hydronephrosis or hydroureter. Symmetric enhancement. Circumferential thickening of the urinary bladder wall which could be due to incomplete distension with or without sequela of chronic bladder outlet obstructionin the setting of an enlarged prostate gland. GI: The stomach is normal. The small bowel and colon are normal incourse and caliber with no evidence of obstruction or inflammation. The appendixis normal. PERITONEUM: No ascites or free air. No lymphadenopathy RETROPERITONEUM: No mass or adenopathy. REPRODUCTIVE: There is mild enlargement of the prostate gland withinternal calcifications. VASCULATURE: No abdominal aortic aneurysm. The abdominal aorta and its branches are patent. MUSCULOSKELETAL: No acute fractures or aggressive osseous lesions. OTHER: There are small fat containing supraumbilical ventral abdominalwall hernias. IMPRESSION: 1. Interval increase in size of heterogeneously attenuating mass in themedial upper pole of the left kidney measuring approximately 26 mm which could reflect a solid renal neoplasm such as renal cell carcinoma or oncocytoma. Dedicated renal protocol MRI is recommended for further evaluation.. 2. Mild enlargement of the prostate gland. THIS IS AN ELECTRONICALLY VERIFIED FINAL REPORT 10/07/2024 7:46 PM - Electronically signed by Francisco Adrian M.D. AT: AT Report ID: [id number] Reading Location: [place] [address] PROCEDURES Final R esult * (ABNORMAL) Troponin T high-sensitivity 4-hour (10/07/2024 5:26 PM CDT) Trop T hs 27(H) <=22 ng/L Comment: Interpretive Data For further hscTnT resources including the diagnostic algorithm and an aid in interpretation, copy and paste this link: https://nrl.testcatalog.org/show/hsTrop Current Interpretive Data last revised 2020. Trop T hs delta 0 ng/L [facility] ([place]) Trop T hs interp Insignificant [facility] ([place]) Blood 10/07/2024 5:26 PM CDT 10/07/2024 5:30 PM CDT [facility] LAB BLOOD ORDERABLES Natali l Result [facility] ([place]) 1 [facility] [place] [address] * D-dimer, quantitative (10/07/2024 5:26 PM CDT) D-Dimer 283 <=499 ng/mL FEU [facility] ([place]) Comment: Interpretive data FDA approved the D-dimer, in conjunction with a low or moderate pretest probability score, to exclude venous thromboembolic events (VTE) (PE and DVT) in outpatients when the D-dimer result is < 500 ng/ml FEU. Evidence supports using an age-adjusted D-dimer cut-off for outpatients older than 50 (age x 10) to improve specificity without sacrificing sensitivity. Example: age 68, VTE cut-off 680 ng/ml FEU. References; Myke HT et al. Brit Med J. 2013;346:f2492. Bartolo et al. Annals Int Med. 2015;163:701-11. Current interpretive data was last revised on 2019. Blood 10/07/2024 5:26 PM CDT 10/07/2024 5:30 PM CDT us [facility] LAB BLOOD ORDERABLES Natali l Result [facility] ([place]) 1 [facility] [place] [address] * POCT glucose (10/07/2024 4:36 PM CDT) Glucose, POC 111 70 - 199 mg/dL Blood 10/07/2024 4:36 PM CDT 10/07/2024 4:36 PM CDT us Notinfile Unknown LAB POCT ORDERABLES - DEVICE F inal Result [facility] ([place]) 1 [facility] [place] [address] * CT Head WO Contrast (10/07/2024 2:26 PM CDT) Anatomical Region Laterality Modality Head and Neck N/A Computed Tomogra phy 10/07/2024 2:30 PM CDT Narrative 10/07/2024 2:38 PM CDT EXAM DESCRIPTION: CT HEAD WO CONTRAST REASON FOR STUDY: Syncope/presyncope, cerebrovascular cause suspected Seizure like activity today TECHNIQUE: Axial images acquired through the brain without intravenous contrast. Images stored on PACS. Automated exposure control was used as a dose optimization technique for this examination. COMPARISON: 04/27/2023. 10/22/2023. FINDINGS: BRAIN: No hemorrhage, edema or mass effect. No gross CT evidence for acute infarct. If there is clinical concern for acute ischemia, an MRI could be performed. Grossly unremarkable white matter. Unchanged ventricular size. Mild generalized cerebral volume loss is unchanged.. Partially empty sella configuration is redemonstrated EXTRA-AXIAL SPACES: No fluid collections. No masses. Stable calcification along the right tentorium CALVARIUM: No fracture. SINUSES/MASTOIDS: Probable mucous retention cysts in the right maxillary sinus ORBITS: No significant abnormality. OTHER: No other significant abnormality. IMPRESSION: No acute intracranial findings. THIS IS AN ELECTRONICALLY VERIFIED FINAL REPORT 10/07/2024 2:38 PM - Electronically signed by Vineet Becker M.D. MZ: MZ Report ID: [id number] Reading Location: [id number] Procedure Note Vineet Becker MD - 10/07/2024 EXAM DESCRIPTION: CT HEAD WO CONTRAST REASON FOR STUDY: Syncope/presyncope, cerebrovascular cause suspected Seizure like activity today TECHNIQUE: Axial images acquired through the brain without intravenous contrast. Images stored on PACS. Automated exposure control was used asa dose optimization technique for this examination. COMPARISON: 04/27/2023. 10/22/2023. FINDINGS: BRAIN: No hemorrhage, edema or mass effect. No gross CT evidence foracute infarct. If there is clinical concern for acute ischemia, an MRI could be performed. Grossly unremarkable white matter. Unchanged ventricularsize. Mild generalized cerebral volume loss is unchanged.. Partially emptysella configuration is redemonstrated EXTRA-AXIAL SPACES: No fluid collections. No masses. Stablecalcification along the right tentorium CALVARIUM: No fracture. SINUSES/MASTOIDS: Probable mucous retention cysts in the right maxillary sinus ORBITS: No significant abnormality. OTHER: No other significant abnormality. IMPRESSION: No acute intracranial findings. THIS IS AN ELECTRONICALLY VERIFIED FINAL REPORT 10/07/2024 2:38 PM - Electronically signed by Vineet Becker M.D. MZ: MZ Report ID: [id number] Reading Location: [place] [address] PROCEDURES Final R esult * (ABNORMAL) Troponin T high-sensitivity series (baseline, 2hr, 4hr, 6hr) (10/07/2024 1:40 PM CDT) Trop T hs 27(H) <=22 ng/L Comment: Interpretive Data For further hscTnT resources including the diagnostic algorithm and an aid in interpretation, copy and paste this link: https://nrl.testcatalog.org/show/hsTrop Current Interpretive Data last revised 2020. Blood 10/07/2024 1:40 PM CDT 10/07/2024 2:19 PM CDT [facility] LAB BLOOD ORDERABLES Natali l Result [facility] [place] [facility] [place] [address] * eGFR (10/07/2024 1:30 PM CDT) eGFR 68 >=60 mL/min/1. 73 m2 Comment: Interpretive Data Reference Interval Normal >/= 90 mL/min/1.73m2 Mildly decreased* 60 - 89 mL/min/1.73m2 Mildly to moderately decreased 45 - 59 mL/min/1.73m2 Moderately to severely decreased 30 - 44 mL/min/1.73m2 Severely decreased 15 - 29 mL/min/1.73m2 Kidney Failure < 15 mL/min/1.73m2 *Relative to young adult level Estimated glomerular filtration rate is determined by the 2020 CKD-EPI equation recommended by the National Kidney Foundation (A Unifying Approach to GFR Estimation: Recommendations of the NKF-ASK Task Force on Reassessing the Inclusion of Race in Diagnosing Kidney Disease, JASN 2020). The CKD-EPI equation should not be used for patients with unstable renal function and has not been validated in children and those over 70. Current interpretive data was last reviewed 2021. Blood 10/07/2024 1:30 PM CDT 10/07/2024 1:35 PM CDT us Hipolito Galvez MD LAB BLOOD ORDERABLES Fi nal Result [facility] ([place]) 1 [facility] Department [place] [address] * Differential, auto (10/07/2024 1:30 PM CDT) Neutrophil abs 4.48 1.50 - 6.50 K/cumm Imm gran abs 0.03 0.00 - 0.10 K/cumm [facility] ([place]) Lymphocyte abs 1.68 0.80 - 3.30 K/cumm [facility] ([place]) Monocyte abs 0.61 0.20 - 0.80 K/cumm [facility] ([place]) Eosinophil abs 0.07 0.00 - 0.50 K/cumm [facility] ([place]) Basophil abs 0.03 0.00 - 0.10 K/cumm [facility] ([place]) Neutrophil pct 65.1 % [facility] ([place]) Comment: Interpretive Data Percent cell count reference ranges are not reported, since discordance with absolute values may lead to misinterpretation of CBC data. Current Interpretive Data was last revised on 2017. Imm gran pct 0.4 % [facility] ([place]) Comment: Interpretive Data Percent cell count reference ranges are not reported, since discordance with absolute values may lead to misinterpretation of CBC data. Current Interpretive Data was last revised on 2017. Lymphocyte pct 24.3 % [facility] ([place]) Comment: Interpretive Data Percent cell count reference ranges are not reported, since discordance with absolute values may lead to misinterpretation of CBC data. Current Interpretive Data was last revised on 2017. Monocyte pct 8.8 % [facility] ([place]) Comment: Interpretive Data Percent cell count reference ranges are not reported, since discordance with absolute values may lead to misinterpretation of CBC data. Current Interpretive Data was last revised on 2017. Eosinophil pct 1.0 % [facility] ([place]) Comment: Interpretive Data Percent cell count reference ranges are not reported, since discordance with absolute values may lead to misinterpretation of CBC data. Current Interpretive Data was last revised on 2017. Basophil pct 0.4 % [facility] ([place]) Comment: Interpretive Data Percent cell count reference ranges are not reported, since discordance with absolute values may lead to misinterpretation of CBC data. Current Interpretive Data was last revised on 2017. Blood 10/07/2024 1:30 PM CDT 10/07/2024 1:35 PM CDT us Hipolito Galvez MD LAB BLOOD ORDERABLES Fi nal Result [facility] ([place]) 1 [facility] Department [place] [address] * (ABNORMAL) CBC with auto differential (10/07/2024 1:30 PM CDT) WBC 6.90 3.80 - 9.90 K/cumm Hgb 13.3 13.0 - 17.5 g/dL [facility]) Hct 42.0 38.9 - 50.3 % [facility]) Plt 252 150 - 400 K/cumm [facility]) MPV 9.4 9.1 - 12.3 fL [facility]) RBC 4.62 4.30 - 5.80 M/cumm [facility]) MCV 90.9 81.3 - 96.4 fL [facility]) MCH 28.8 27.1 - 33.3 pg [facility] ([place]) MCHC 31.7(L) 32.3 - 35.7 g/dL [facility]) RDW CV 13.1 11.1 - 14.9 % [facility] RDW SD 43.2 35.7 - 48.1 fL [facility] ([place]) NRBC abs 0.00 0.00 - 0.01 K/cumm [facility] ([place]) Blood 10/07/2024 1:30 PM CDT 10/07/2024 1:35 PM CDT us Hipolito Galvez MD LAB BLOOD ORDERABLES Fi nal Result [facility] ([place]) 1 [facility] Department [place] [address] * (ABNORMAL) Comprehensive metabolic panel (10/07/2024 1:30 PM CDT) Sodium 139 135 - 145 mmol/L Potassium, pl 4.3 3.3 - 4.9 mmol/L [facility]) Chloride 103 97 - 110 mmol/L [facility] CO2 23 22 - 32 mmol/L [facility]) Anion gap 14 2 - 15 mmol/L [facility] ([place]) BUN 22 6 - 25 mg/dL [facility] ([place] Creatinine 1.19 0.80 - 1.30 mg/dL [facility] Glucose 124 70 - 199 mg/dL [facility] ([place]) Comment: Interpretive Data Fasting glucose >/= 126 mg/dl is diagnostic for diabetes. Fasting is defined as no caloric intake for at least 8 hours. Fasting glucose between 100 mg/dl to 125 mg/dl is diagnostic of prediabetes. In a patient with classic symptoms of hyperglycemia or hyperglycemic crisis, a random glucose >/= 200 mg/dl is diagnostic for diabetes. In the absence of unequivocal hyperglycemia, results should be confirmed by repeat testing. The classification and Diagnosis of Diabetes Diabetes Care 202; 46: S19-S40. Current interpretive data was last revised 2022. Calcium 9.8 8.5 - 10.3 mg/dL [facility]) Bilirubin, total 0.4 0.1 - 1.2 mg/dL [facility] ([place]) Protein, pl 6.2(L) 6.5 - 8.5 g/dL [facility] ([place]) Albumin 4.1 3.5 - 5.0 g/dL [facility]) Alk phos 106 40 - 130 Units/L [facility]) ALT 23 7 - 55 Units/L [facility]) AST 19 10 - 50 Units/L [facility]) Blood 10/07/2024 1:30 PM CDT 10/07/2024 1:35 PM CDT us Hipolito Galvez MD LAB BLOOD ORDERABLES Fi nal Result [facility] ([place]) 1 [facility] Department [place] [address] * ECG 12 lead (10/07/2024 1:29 PM CDT) 10/07/2024 1:29 PM CDT Narrative [facility] - 10/07/2024 2:39 PM CDT Vent Rate: 60 bpm RR Interval: 995 msec AL Interval: 226 msec QRS Duration: 150 msec QT Interval: 420 msec QTC Interval: 420 msec P-R-T [place]: 31 - -70 - 21 degrees IMPRESSION: SINUS RHYTHM WITH FIRST DEGREE AV BLOCK RIGHT BUNDLE BRANCH BLOCK [120+ ms QRS DURATION, UPRIGHT V1, 40+ ms S IN I/aVL/V4/V5/V6] LEFT ANTERIOR FASCICULAR BLOCK [QRS AXIS <= -45, QR IN I, RS IN II] POSSIBLE ANTERIOR MYOCARDIAL INFARCTION , OF INDETERMINATE AGE [30 ms Q WAVE IN V3/V4, OR R < 0.2 mV IN V4] ABNORMAL ECG NO CHANGE FROM PREVIOUS TRACING NOTED Electronically Signed By: Pascual Hinton MD us Hipolito Galvez MD ECG ORDERABLES Final R esult [facility] * POCT glucose (10/07/2024 1:27 PM CDT) Glucose, POC 100 70 - 199 mg/dL Blood 10/07/2024 1:27 PM CDT 10/07/2024 1:27 PM CDT us Notinfile Unknown LAB POCT ORDERABLES - DEVICE F inal Result [facility] ([place]) [address] [place] [address] Department [place] [address] * COLONOSCOPY (08/06/2021 12:22 PM CDT) Anatomical Region Laterality Modality Other Narrative Procedure Note Romario Ramos MD - 08/06/2021 12:22 PM CDT [facility] Patient Name: Lisa Razo Procedure Date: 08/06/2021 12:22 PM Date of : 1960 Admit Type: Outpatient Age: 61 Gender: Male Attending MD: Romario Ramos M.D. Room: [facility] 1 Note Status: Finalized Patient Profile: This is a 61 year old male. Father had coloncancer. He has episodes of bright red bleeding perrectum. Procedure: Colonoscopy Indications: Screening in patient at increased risk: Familyhistory of 1st-degree relative with colorectal cancer, Last colonoscopy 5 years ago Referring MD: EREN Castañeda Chi Providers: Romario Ramos M.D. Impression: - Mild diverticulosis in the sigmoid colon - Internal hemorrhoids. - Fissure in Ano. Likely source of bleeding - No specimens collected. Recommendation: - Repeat colonoscopy in 5 years for screeningpurposes. - Continue present medications. - Fiber supplements daily. Use fissure ointment(0.4% nitroglycerine), twice daily for 6 weeks per anus. Prescription provided. - Follow up in our GI office bleeding per rectum continued Medicines: Monitored Anesthesia Care Complications: No immediate complications. Estimated Blood Loss: Estimated blood loss: none. Procedure: Pre-Anesthesia Assessment: - Prior to the procedure, a History and Physicalwas performed, and patient medications and allergieswere reviewed. The patient's tolerance of previous anesthesia was also reviewed. The risks andbenefits of the procedure and the sedation options and risks were discussed with the patient. All questions were answered, and informed consent was obtained. Prior Anticoagulants: The patient has taken noanticoagulant or antiplatelet agents. ASA Grade Assessment: III -A patient with severe systemic disease. Afterreviewing the risks and benefits, the patient was deemed in satisfactory condition to undergo the procedure. The benefits, risks and alternatives of theprocedure and sedation were discussed and informed consentwas obtained. All questions were answered. Please referto the signed informed consent document in the medical record. The bowel preparation used was Miralax and bisacodyl tablets via split dose instruction. The scope was passed under direct vision. The Pediatric Colonoscope PCF-[id number] was introducedthrough the anus and advanced to the the cecum, identifiedby appendiceal orifice and ileocecal valve. Thequality of the bowel preparation was good. Bowel prep was administered using a split dose. Findings: An anal fissure was found on perianal exam. Likely the source ofrecent episode of bleeding. The cecum appeared normal. The colon (entire examined portion) appeared normal overall. Nopolyps and no mass lesions noted. Few small diverticula noted in the sigmoid colon. Internal hemorrhoids were found during retroflexion. The hemorrhoids were small to medium-sized. Electronically signed by Romario Ramos M.D. Romario Ramos M.D. 08/06/2021 3:49:22 PM Number of Addenda: 0 Note Initiated On: 08/06/2021 12:22 PM Procedure Code(s): --- Professional --- 67566, Colonoscopy, flexible; diagnostic, including collection of specimen(s) by brushing or washing, when performed (separateprocedure) Diagnosis Code(s): --- Professional --- Z80.0, Family history of malignant neoplasm of digestive organs K60.2, Anal fissure, unspecified K64.8, Other hemorrhoids CPT copyright 2020 [employer]. All rights reserved. The codes documented in this report are preliminary and upon cable installer reviewmay be revised to meet current compliance requirements. Recognized by the [employer] for promoting quality in endoscopy Romario Ramos MD ENDOSCOPY PROCEDURES Final Result from Last 3 Months or Most Recently Relevant to Health Maintenance Insurance [facility] [employer] Member Subscriber Plan / Payer (Ef fective 2021-Present) Name:Lisa Razo Relation to Subscriber:Spouse Name:Winnie Razo Stacey Date of :1959 (Home) (Work) Address: [address] [place] [address] Payer ID:[id number] (NAIC) Type: OTHER Address: [address] [place] [id number] MEDICARE [employer] MEDICARE [place] [address] MEDICARE HUMAN MEDICARE SUPPLEMENT Advance Directives For more information, please contact: [phone] * Full Code (Latest Code Status on File) Date Activated Date Inactivated Comments 10/07/2024 9:59 PM 10/10/2024 10:30 PM * Full Code Date Activated Date Inactivated Comments 08/06/2021 1:07 PM 08/06/2021 8:07 PM * Full Code Date Activated Date Inactivated Comments 08/06/2021 1:07 PM 08/06/2021 1:07 PM * Full Code Date Activated Date Inactivated Comments 07/18/2018 6:08 PM 07/21/2018 8:27 PM Care Teams Papier Mache' Molder Relationship Specialty Start Date End Date Maximiliano Collado MD [address] [place] [address] PCP - General Internal Medicine 09/19/21
--- OUTSIDE RECORDS SUMMARY | 2024-11-11 10:32 | XMS_ITS | Clinical Summary ---
Author Organization [facility] Address [address] [place] [address] Phone Care Team Providers Care Health Sciences Manager Name Role Phone Maximiliano Collado MD Primary Care Provider [phone] Bradly Mcdaniels MD Unavailable [phone] Allergies No known active allergies Medications busPIRone (BUSPAR) 15 MG Tablet Take 15 mg by mouth 3 times daily. Active irbesartan (AVAPRO) 300 MG Tablet Take 300 mg by mouth nightly. Active NIFEdipine CR (PROCARDIA-XL) 30 MG TABLET SR 24 HR Take 30 mg by mouth daily. Active Dapagliflozin Propanediol (Farxiga) 10 MG Tablet Take by mouth. Active Nebivolol HCl 10 MG Tablet Take by mouth. Active rosuvastatin (CRESTOR) 40 MG Tablet Take 40 mg by mouth daily. Active hydrALAZINE 10 MG Tablet Take 10 mg by mouth 3 times daily. Active ezetimibe (ZETIA) 10 MG Tablet Take 10 mg by mouth daily. Active LORazepam (ATIVAN) 0.5 MG Tablet Take 0.5 mg by mouth every 6 hours as needed. Active tamsulosin (FLOMAX) 0.4 MG Capsule Take 0.4 mg by mouth daily. Active metFORMIN (GLUCOPHAGE) 500 MG Tablet Take 500 mg by mouth 2 times daily (with meals). Active buPROPion (Wellbutrin XL) 300 MG TABLET SR 24 HR XL tablet Take 300 mg by mouth every morning. Active lamoTRIgine (LaMICtal) 25 MG Tablet Take 25 mg by mouth daily. Active DULoxetine (CYMBALTA) [address] Particles Take 120 mg by mouth daily. Active topiramate (TOPAMAX) 25 MG TabletIndication s:Essential tremor TAKE 2 TABLETS TWICE A DAY 180 Tablet 7 08/18/2024 Active Encounters Date Type Department Care Team Description 08/18/2024 Refill [facility] Neurology [facility] [address] [place] [address] Bradly Mcdaniels MD Medication Refill from Last 3 Months Social History Tobacco Use Types Packs/Day Years Used Date Smoking Tobacco: Never Smokeless Tobacco: Never Tobacco Cessation:Counseling Given: Not Answered Alcohol Use Standard Drinks/Week Comments Not Currently 0 (1 standard drink = 0.6 oz pur e alcohol) Sex and Gender Information Value Date Recorded Sex Assigned at Male 04/21/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 Gender Identity Not on file Sexual Orientation Not on file Last Filed Vital Signs Vital Sign Reading Time Taken Comments Blood Pressure 102/78 11/19/2023 2:14 PM CDT Pulse 66 11/19/2023 2:14 PM CDT Temperature 35.9 C (96.7 F) 11/19/2023 2:14 PM CDT Respiratory Rate 16 11/19/2023 2:14 PM CDT Oxygen Saturation 99% 11/19/2023 2:14 PM CDT Inhaled Oxygen Concentration - - Weight 124.7 kg (275 lb) 11/19/2023 2:14 PM CDT Height 177.8 cm (5' 10) 11/19/2023 2:14 PM CDT Body Mass Index 39.46 11/19/2023 2:14 PM CDT Plan of Treatment Upcoming Encounters Date Type Department Care Team (Late st Contact Info) Description 11/17/2024 3:00 PM CDT Office Visit [facility] [address] [place] [address] Bradly Mcdaniels MD [address] [place] [address] Health Maintenance Due Date Last Done Comments Hepatitis C Virus (HCV) Screening 1960 Cologuard 2005 Immunochemical Fecal Occult Blood 2005 Pneumococcal Immunization (5 0+ years) (1 of 1 - PCV) 2010 Zoster Immunization (1 of 2) 2010 PSA Discussion 2015 Respiratory Syncytial Virus (RSV) Immunization (Adult) (1 - Risk 60-74 years 1-dose series) 2020 SARS-COV-2 Immunization (3 - season) 2023 03/03/2021, 06/03/2020 Influenza Immunization (#1) 2024 03/02/2019 Colonoscopy 08/07/2031 08/06/2021 Colorectal Cancer Screening 08/07/2031 DTaP/Tdap/Td Immunization Discontinued 05/11/2020 TdaP Immunization Completed 05/11/2020 Hepatitis B Immunization Aged Out No longer eligible based on patient's age to complete this topic Human Papillomavirus (HPV) Immunization Aged Out No longer eligible based on patient's age to complete this topic Meningococcal Immunization (ACWY) Aged Out No longer eligible based on patient's age to complete this topic Rotavirus Immunization Aged Out No lo nger eligible based on patient's age to complete this topic Insurance [address] MEDICARE Care Teams Health Sciences Manager Relationship Specialty Start Date End Date Maximiliano Collado MD [address] [place] [address] PCP - General Internal Medicine 04/21/23 Bradly Mcdaniels MD [address] [place] [address] Consulting Physician Neurology 08/03/23
--- OUTSIDE RECORDS SUMMARY | 2024-11-11 10:32 | XMS_ITS | Continuity of Care Document ---
Author Organization [facility] Address [address] [address] [place] [address] Phone Care Team Providers Care Tubing Mill Setter Name Role Phone Mari OD, Ant Unavailable Unavailable Advance Directives Directive Yes / No Effective Date File Name No Information Encounters Encounter Description Practice Location Reason(s) For Visit Diagnoses Date Provider Providers Copied on Encounter [facility], [address], [place], [place], [id number], [place] tel:[phone] [facility] No Information 1-200 6 Mari OD Ant. [address] , [address], [place], [address], [place]. tel:[phone] Family History Family Member Type Diagnosis Age At Onset No Information Payers Payer name Insurance type Covered alliance party ID Authoriza tion(s) No Information Social History Type Description Quantity Date Captured Comments Sex Male Smoking Status No Information Chief Complaint And Reason For Visit No Information Reason For Referral Reason For Referral No Information History Of Present Illness Encounter Date Complaint History Of Prese nt Illness No Information Functional Status Date Functional Assessmen t No Information Instructions Date Instruction Additional Infor mation No Information Assessments Type Assessment Date No Information Patient Care Teams Name Effective Dates (start - stop) Status Members No Information
--- OUTSIDE RECORDS SUMMARY | 2024-11-11 10:32 | XMS_ITS | Encounter Summary ---
Author Organization [facility] Address [address] [place] [address] Phone Care Team Providers Care Tip Fixer Name Role Phone Maximiliano Collado MD Primary Care Provider [phone] Bradly Mcdaniels MD Unavailable [phone] Reason for Visit * Reason Comments Medication Refill Encounter Details Date Type Department Care Team (Late Contact Info) Description [facility] [place] [address] Bradly Mcdaniels MD [address] [place] [address] Medication Refill Social History Tobacco Use Types Packs/Day Years Used Date Smoking Tobacco: Never Smokeless Tobacco: Never Alcohol Use Standard Drinks/Week Comments Not Currently 0 (1 standard drink = 0.6 oz pur e alcohol) Sex and Gender Information Value Date Recorded Sex Assigned at Male 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 Gender Identity Not on file Sexual Orientation Not on file documented as of this encounter Plan of Treatment Upcoming Encounters Date Type Department Care Team (Late Contact Info) Description 11/17/2024 3:00 PM CDT Office Visit [facility] [address] [place] [address] Bradly Mcdaniels MD [address] [place] [address] documented as of this encounter Visit Diagnoses Not on filedocumented in this encounter Care Teams Tip Fixer Relationship Specialty Start Date End Date Maximiliano Collado MD [address] [place] [address] PCP - General Internal Medicine 04/21/23 Bradly Mcdaniels MD [address] [place] [address] Consulting Physician Neurology 08/03/23 documented as of this encounter
--- OUTSIDE RECORDS SUMMARY | 2024-11-11 10:32 | XMS_ITS | Patient Health Record ---
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 Date [place] [address] [place] [phone] [id number] LISA RAZO Self - patient is the insured [employer] Medicare Supplement [address] [address] [place] [phone] [id number] LISA RAZO Self - patient is the insured Medical (General) History Medical History History ICD Code Essential tremor Generalized anxiety disorder Mild recurrent major depression Panic attack Hypertension SWATHI untreated diabetes-type II Surgical History Surgery Date(Month/Year) Removal of gallbladder (56412) 8 Other GERD/stomach rotation 07/28/1997
== END 2024-11-11 10:25 | disposition home or self-care (01) ==
PROVIDERS: PCP Internal Medicine; Visit Provider Nurse Practitioner Adult Health
DX: N40.1 Benign prostatic hyperplasia with lower urinary tract symptoms (principal); I10 Essential (primary) hypertension; R55 Syncope and collapse; Z68.36 Body mass index [BMI] 36.0-36.9, adult; G47.30 Sleep apnea, unspecified; E11.9 Type 2 diabetes mellitus without complications; N28.89 Other specified disorders of kidney and ureter
CPT/HCPCS: 74183; A9577